=== PATIENT | female | born 1990 | race Asian ===

== ENCOUNTER → 2021-11-12 13:54 | Outpatient (CLI) | payer OTHER, SELFPAY ==
[2021-11-12 15:15] LABS: COVID19 -Nasal RAPID Negative (Negative)
== END ==
PROVIDERS: Visit Provider Family Medicine Sleep Medicine
DX: Z20.822 Contact with and (suspected) exposure to COVID-19 (principal)
CPT/HCPCS: 87635; C9803

== ENCOUNTER 2021-11-14 08:49 | Day surgery (SDC) | payer OTHER, SELFPAY ==
[2021-11-07 07:37] VITALS: BMI 21.7
[2021-11-14] VITALS (8 sets, daily range): BP systolic 94–113; BP diastolic 50–78; PULSE 75–83; RESP 16; TEMP 36.1–36.8; O2SAT 0–100; BMI 21.7
[2021-11-14] MEDS: ACETAMINOPHEN 325 MG TABLET 975 MG PO (09:23)
[2021-11-14] MEDS: LACTATED RINGERS 1,000 ML 42 ML IV ×2 (09:24→11:50)
[2021-11-14] MEDS: GABAPENTIN 300 MG CAPSULE PO (09:24)
[2021-11-14] MEDS: SCOPOLAMINE 1 PATCH TOP (09:24)
--- NOTE | 2021-11-14 09:54 | PM.PREOP ---
Pre-operative Note COVID-19 COVID-19 status: Negative Result date/Date tested (Pos, Neg/Pending): 11/12/21 Interval Note History & Physical reviewed/Exam performed by Physician: Yes Changes to H&P: No
--- NOTE | 2021-11-14 09:55 | PM.OP.1 ---
Operative Date/Time/Diagnoses Date of procedure: 11/14/21 Time of procedure: 09:55 Pre-op diagnosis: Left painful bunionette fifth metatarsal, adductovarus fifth toe Post-op diagnosis: same Procedure & Clinicians Procedure: Left fifth metatarsal bunionectomy with metatarsal osteotomy, fifth proximal interphalangeal joint derotational arthroplasty Same procedure as scheduled: Yes Indications: 31-year-old female with painful tailor's bunionette and hammertoe on the left 5th metatarsal and toe. Conservative measures have failed to alleviate her pain and she wished to have surgical intervention at this time. She arrived a little late today due to arriving at the wrong location and although her phone number evidently was incorrect and the hospital was unable to reach her ahead of the surgery, she did arrive NPO and prepared and ready for surgery. She did not bring her boot with her but it is in the car and her is going to bring it to the hospital during her surgery. We reviewed the surgery in detail for the left foot, and risks, potential complications, as well as alternatives and expected outcomes. Consent was reviewed and there are no contraindications to the procedure at this time. I spoke to her in detail regarding my concerns about her traveling to [place] following the 1st week and half or so of the surgery, and the risks associated with that, but also how we can help in regards to preparing for that. This may involve additional visits with a provider while she is there, and possible anticoagulant therapy ahead of her flight. She stated understanding and also stated she would cancel the trip if she felt further risk or difficulties in managing pain etc.. With that we are ready to proceed. Surgeon: Cathy Berry Click Yes if Unassisted: Yes Anesthesia Type: General Operative Notes Closure Type: primary Specimen(s): none sent Applied: implant(s) ([place] 2.5 cannulated partially threaded screw.) Estimated Blood Loss (mL): 30 Blood products transfused: none Tourniquet time (min): 117 Procedure in detail: The patient was brought to the operating room and placed on the operating table in the supine position. The tourniquet was placed about the left thigh. Well padded, appropriately aligned. After induction of general anesthesia the foot and ankle were prepped and draped in the usual aseptic manner. The tourniquet was inflated. Next, an incision was made over the 5th metatarsalphalangeal joint extending to the base. The incision was deepened through subcutaneous tissues being careful to identify and retract all vital neural and vascular structures. All bleeders were cauterized and ligated as necessary. The 5th MTPJ capsule was incised and this exposed the underlying enlarged 5th metatarsal lateral eminence. Attention was directed to the base of the 5th metatarsal and verifying the angle from the 5th to 4th, 2 bone cuts were made in the proximal diaphysis into the metaphysis, and the wedge of bone was removed. Using bone forceps, the angle was gently closed and showed good alignment with reduction of the 4th intermetatarsal angle. The lateral hinge was disrupted due to the amount of bone that was needed to be removed to close this angle but this was gently feathered and revised to allow for good seating of the bone and closure of the osteotomy. Temporary fixation was used and through the aid of a C-arm an attempt was made to place a screw from distal lateral to proximal medial. This just did not seem to capture very well and decision was made instead to remove this. Instead, using standard AO technique, the 2.5 mm screw was placed using the angle from proximal lateral to distal medial. This closed it much better and had good strength. The strength of the osteotomy and amount of bone that was used with the screw determined that we did not need an additional plate along this osteotomy. This was also verified on multiple angles using mini C-arm. Back up to the lateral eminence of the 5th metatarsal head, a saw was used to reduce this and the rasp was used to gently smooth the edges of the resection. The area was irrigated with copious amounts of normal sterile saline. Next, an incision was continued distally along the 5th proximal interphalangeal joint. When it got to that location a small ellipse of skin was removed. The incision was deepened through subcutaneous tissues being careful to identify and retract all vital neural and vascular structures. All bleeders were cauterized and ligated as necessary. The extensor tendon was transected at the proximal interphalangeal joint and mobilized this location. Saw was used to resect the head of the proximal phalanx and a rongeur the prominent base of the intermediate phalanx. The area was irrigated with copious amounts of normal sterile saline. The tourniquet was deflated. A prompt hyperemic response was seen to the foot. Extensor tendon along the dorsal proximal interphalangeal joint was repaired using 4-0 Vicryl. Closure deep and subcutaneous was performed using Vicryl, and nylon was used for the skin. A sterile lightly compressive dressing was placed on the foot. Patient was then placed in a postoperative boot and transferred to PACU with vital signs stable and vascular status intact to the foot. Post-operative Condition: stable Disposition: PACU Plan for aftercare: Following a period of postoperative monitoring, the patient will be discharged to home on written and oral postoperative instructions including keeping the dressing dry and intact, no weight-bearing to the surgical foot, icing and elevating the foot when seated at home. DVT prevention techniques have been reviewed. For the 1st postoperative visit the dressing will be changed and close to the 4th postoperative week we will likely get the x-ray. Very detailed information is reviewed in person with her and the nurse as well as on the phone with her and in written and instructions regarding my concerns about her travel plans and she voiced understanding as did her .
[2021-11-14] MEDS: CEFAZOLIN 2 GM/20 ML SYRINGE IV (10:12)
[2021-11-14] MEDS: BUPIVACAINE 0.5% (PF) VIAL 30 ML INJ (10:20)
--- NOTE | 2021-11-14 10:41 | SUR.OPER ---
Supine on padded OR bed, head on pillow, arms secured on padded arm boards at <90 degrees abduction, legs uncrossed, safety belt at abdomen, tape over blanket over right lower leg, bump under left hip.
== END 2021-11-14 14:32 | disposition home or self-care (01) ==
PROVIDERS: Referring Provider Podiatrist; Visit Provider Podiatrist
PROC: 0QBP0ZZ Excision of Left Metatarsal, Open Approach (ICD-10-PCS; CPT 28292; principal; 2021-11-14 10:00)
DX: M21.622 Bunionette of left foot (principal); M20.42 Other hammer toe(s) (acquired), left foot; M20.5X2 Other deformities of toe(s) (acquired), left foot; M21.41 Flat foot [pes planus] (acquired), right foot; M21.42 Flat foot [pes planus] (acquired), left foot; F41.9 Anxiety disorder, unspecified
CPT/HCPCS: 28308; 28285; J0690; J1100; J1885; J2250; J2405; J2704; J3010

== ENCOUNTER → 2022-02-24 12:55 | Outpatient (CLI) | payer OTHER, SELFPAY ==
--- NOTE | 2022-02-24 12:55 | DI.US.S_ITS ---
PROCEDURE: US OB <= 14 WEEKS FETUS INDICATIONS: DATING OUTSIDE/PRIOR DATING DATA: Last menstrual period (LMP): 12/30/21. LMP-based estimated date of delivery (ARSEN): 10/06/22. First dating scan (date and location): 02/24/22, current exam. Estimated date of delivery (ARSEN) from first dating scan: 10/03/22. TECHNIQUE: Real-time scanning was performed of the fetus and maternal pelvic organs, with image documentation. Endovaginal scanning was also performed to better visualize the fetus and maternal ovaries. COMPARISON: None. FINDINGS: Embryo: There is a single fetus with an unfused amnion and normal appearing yolk sac. Detectable cardiac activity is present in the fetus at a rate of 171 beats per minute. Average crown-rump length is 1.89 cm corresponding to an eight week three day plus or minus five days gestation. Heart rate: 171 Maternal organs: Maternal cervix is closed. There is an intrauterine gestational sac with an appropriate decidual response. There is a 1.4 cm inactive perigestational hemorrhage along the caudal right margin, likely implantation bleed. The right ovary contains a corpus luteum. The left ovary was not well seen. IMPRESSION: 1. Single living intrauterine with a gestational age by ultrasound of eight weeks three days and estimated due date of 10/03/22, in good agreement with the clinically assigned due date. 2. Probable implantation bleed noted along the right caudal gestational sac. We strive to produce accurate, complete, and clear reports of imaging services. To assist us in improving patient care, this report was composed using standard report templates and voice recognition software. Therefore, it may contain abnormal punctuation, insertions and/or omissions. Occasional wrong-word or sound-alike substitutions may occur. Though we review the report and make efforts to correct it, we do recommend that the report be read carefully in proper context to recognize any text inaccuracies. Dictated by: Bettina Oleary M.D. on 02/24/2022 at 16:38 Approved by: Bettina Oleary M.D. on 02/24/2022 at 16:41
== END ==
PROVIDERS: Referring Provider Obstetrics & Gynecology; Visit Provider Obstetrics & Gynecology
DX: Z34.81 Encounter for supervision of other normal pregnancy, first trimester (principal); Z3A.08 8 weeks gestation of pregnancy
CPT/HCPCS: 76801; 76817

== ENCOUNTER → 2022-03-26 09:45 | Outpatient (CLI) | payer OTHER, SELFPAY ==
[2022-03-26 16:00] LABS: Urine N gonorrhoeae NOT DETECTED
[2022-03-26 16:48] LABS: Urine Chlamydia NOT DETECTED
== END ==
PROVIDERS: Visit Provider Obstetrics & Gynecology
DX: Z34.81 Encounter for supervision of other normal pregnancy, first trimester (principal); Z3A.12 12 weeks gestation of pregnancy
CPT/HCPCS: 87491; 87591

== ENCOUNTER → 2022-03-26 10:06 | Outpatient (CLI) | payer OTHER, SELFPAY ==
[2022-03-26 11:19] LABS: Add Manual Diff / Slide Review NO; Basophils Absolute Auto 0 /uL (0-100); Basophils Percent Auto 0.5 % (0-2); Eosinophils Absolute Auto 200 /uL (0-450); Eosinophils Percent Auto 2.6 % (2-4); Hematocrit 31.6 % (36-46); Hemoglobin 10.5 g/dL (12.0-16.0); Lymphocytes Absolute Auto 1600 /uL (1100-4500); Mean Corpuscular HGB Conc 33.1 % (30-36); Mean Corpuscular Hemoglobin 26.5 PG (26-34); Mean Corpuscular Volume 80.2 fL (80-100); Monocytes Absolute Auto 300 /uL (0-900); Monocytes Percent Auto 4.5 % (3-14); Neutrophils Absolute Auto 4800 /uL (1500-7000); Neutrophils Percent Auto 69.4 % (50-75); Platelet Count 219 X10^3/uL (150-400); Red Blood Cell Count 3.95 X10^6/uL (4.0-5.2); Red Cell Distribution Width 13.4 % (11.6-14.8); White Blood Cell Count 6.9 X10^3/uL (4.5-11.0)
[2022-03-26 11:23] LABS: Appearance Urine UA CLEAR; Bilirubin Urine UA NEGATIVE (NEGATIVE); Color Urine UA YELLOW; Glucose Urine UA NEGATIVE (Negative); Ketones Urine UA NEGATIVE (NEGATIVE); Leukocyte Esterase Urine UA TRACE (NEGATIVE); Nitrite Urine UA NEGATIVE (Negative); Occult Blood Urine UA TRACE-INTACT (Negative); Protein Urine UA NEGATIVE (Negative); Specific Gravity Urine UA <=1.005 (1.000-1.035); Urobilinogen Urine UA 0.2 E.U./dL (0.2)
[2022-03-26 11:25] LABS: pH Urine UA 6.5 (4.5-8.0)
[2022-03-26 11:29] LABS: Bacteria Urine None Seen; RBC Urine None Seen (0-5/HPF); Urine Comments Microscopic Normal; WBC Urine None Seen (0-5/HPF)
[2022-03-27 08:40] LABS: RPR Screen Non Reactive (Non Reactive); Varicella IgG Antibody 622 index (Immune >165)
[2022-03-27 16:08] LABS: Hepatitis B Surface Antigen NEGATIVE s/c (NEGATIVE); Rubella Antibody IgG 67.4 IU/mL (>15)
[2022-03-27 16:29] LABS: HIV 1 & 2 Ab/Ag 4th Gen Combo NEGATIVE (NEGATIVE); Hep C Virus Ab w/Reflex Quant NEGATIVE s/c (NEGATIVE)
== END ==
PROVIDERS: PCP Student in an Organized Health Care Education/Training Program; Referring Provider Obstetrics & Gynecology; Visit Provider Obstetrics & Gynecology
DX: Z34.81 Encounter for supervision of other normal pregnancy, first trimester (principal); Z3A.12 12 weeks gestation of pregnancy
CPT/HCPCS: 36415; 80055; 81003; 81015; 86787; 86803; 86850; 86900; 86901; 87077; 87086; 87186; 87389; 87491; 87591

== ENCOUNTER → 2022-04-23 10:08 | Outpatient (CLI) | payer OTHER, SELFPAY ==
[2022-04-23 12:28] LABS: Hematocrit 29.2 % (36-46); Hemoglobin 9.9 g/dL (12.0-16.0)
[2022-04-25 20:41] LABS: Gest Age on Col Date 16.3 weeks (.); Insulin Dep Diabetes No (.); OSBR Risk 1IN 5251 (.); Results Report (.); Test Results *Screen Negative* (.)
== END ==
PROVIDERS: PCP Student in an Organized Health Care Education/Training Program; Referring Provider Obstetrics & Gynecology; Visit Provider Obstetrics & Gynecology
DX: Z34.82 Encounter for supervision of other normal pregnancy, second trimester (principal); Z3A.16 16 weeks gestation of pregnancy
CPT/HCPCS: 36415; 82105; 85014; 85018

== ENCOUNTER → 2022-05-21 11:11 | Outpatient (CLI) | payer OTHER, SELFPAY ==
--- NOTE | 2022-05-21 11:13 | DI.US.S_ITS ---
PROCEDURE: US OB >= 14 WEEKS FETUS INDICATIONS: ANATOMY OUTSIDE/PRIOR DATING DATA: Last menstrual period (LMP): 12/30/2021. LMP-based estimated date of delivery (ARSEN): 10/06/2022. First dating scan (date and location): 02/24/2022. Estimated date of delivery (ARSEN) from first dating scan: 10/03/2022. The calculations are made using the working ARSEN . TECHNIQUE: Real-time scanning was performed of the fetus, with image documentation and biometric measurements. COMPARISON: [facility], OB <= 14 WEEKS FETUS, 02/24/2022, 13:03. FINDINGS: General: A single living intrauterine gestation is present. Presentation: Vertex. Placenta: Placental position is posterior , without previa. Amniotic fluid index: 14.7 cm, normal range is 5-24 cm. Single deepest vertical pocket is 4.8 cm. heart rate: 137 beats per minute. Maternal cervical canal: 3.1 cm long. Normal lower limit is 2.5 cm. biometrics: Biparietal diameter: 20 weeks 0 day Head circumference: 20 weeks 3 days Abdominal circumference: 21 weeks 0 day Femur length: 21 weeks 3 days Clinically estimated gestational age: 20 weeks 5 days Composite gestational age from present scan: 20 weeks 5 days Estimated weight and percentile: 400 g; 67% Anatomic survey: Neuro: Ventricles are non-dilated at less than 10 mm. Cisterna magna is normal at 3-11 mm. Cerebellum is normal in size and morphology. Nuchal skin fold: Normal at less than 6 mm between 14-21 weeks gestational age. Face: Nose and lips, facial profile are normal. Spine: No evidence for spina bifida. Heart: 4-chambered heart is present, with normal ventricular outflow tracts. Diaphragm: Diaphragm is intact. Stomach: Left-sided stomach is present. Kidneys: No hydronephrosis. Normal is less than 5 mm in 2nd trimester, less than 7 mm in 3rd trimester. Cord: 3-vessel cord has orthotopic insertion. Bladder: Normal in size. Extremities: All 4 extremities identified. IMPRESSION: 1. A single living intrauterine gestation with appropriate interval growth. 2. Normal anatomic survey. We strive to produce accurate, complete, and clear reports of imaging services. To assist us in improving patient care, this report was composed using standard report templates and voice recognition software. Therefore, it may contain abnormal punctuation, insertions and/or omissions. Occasional wrong-word or sound-alike substitutions may occur. Though we review the report and make efforts to correct it, we do recommend that the report be read carefully in proper context to recognize any text inaccuracies. Dictated by: Laura Briceno M.D. on 05/21/2022 at 14:50 Approved by: Laura Briceno M.D. on 05/21/2022 at 14:58
[2022-05-21 12:21] LABS: Hematocrit 30.4 % (36-46); Hemoglobin 10.2 g/dL (12.0-16.0)
[2022-05-21 19:29] LABS: HEMOLYSIS < 15 (0-50); Iron 168 ug/dL (37-170)
[2022-05-21 19:42] LABS: Percent Iron Saturation 42 % (15-50); Total Iron Binding Capacity 398 ug/dL (265-497); Transferrin 306 mg/dL (206-381)
== END ==
PROVIDERS: PCP Student in an Organized Health Care Education/Training Program; Referring Provider Obstetrics & Gynecology; Visit Provider Obstetrics & Gynecology
DX: O99.012 Anemia complicating pregnancy, second trimester; Z36.89 Encounter for other specified antenatal screening; Z3A.20 20 weeks gestation of pregnancy
CPT/HCPCS: 36415; 76811; 83540; 83550; 85014; 85018

== ENCOUNTER → 2022-05-29 13:27 | Outpatient (CLI) | payer OTHER, SELFPAY ==
[2022-05-29 16:42] LABS: Folate > 20.0 ng/mL (2.76-20.0); Vitamin B12 371 pg/mL (239-931)
== END ==
PROVIDERS: PCP Student in an Organized Health Care Education/Training Program; Referring Provider Obstetrics & Gynecology; Visit Provider Obstetrics & Gynecology
DX: O99.012 Anemia complicating pregnancy, second trimester (principal); Z3A.21 21 weeks gestation of pregnancy
CPT/HCPCS: 36415; 82607; 82746; 83021

== ENCOUNTER → 2022-07-01 17:45 | Outpatient (CLI) | payer OTHER, SELFPAY | PROVIDERS: PCP Student in an Organized Health Care Education/Training Program; Visit Provider Obstetrics & Gynecology | DX: Z34.82 Encounter for supervision of other normal pregnancy, second trimester (principal); R31.9 Hematuria, unspecified | CPT/HCPCS: 87077; 87086; 87186 ==

== ENCOUNTER → 2022-07-10 09:36 | Outpatient (CLI) | payer OTHER, SELFPAY ==
[2022-07-10 11:16] LABS: Hemoglobin 9.6 g/dL (12.0-16.0)
[2022-07-10 11:29] LABS: GTT (PREG) 1 Hour PP 50gm Dose 112 mg/dL (76-139)
== END ==
PROVIDERS: PCP Student in an Organized Health Care Education/Training Program; Referring Provider Obstetrics & Gynecology; Visit Provider Obstetrics & Gynecology
DX: Z34.82 Encounter for supervision of other normal pregnancy, second trimester (principal); Z3A.26 26 weeks gestation of pregnancy
CPT/HCPCS: 36415; 82950; 85014; 85018

== ENCOUNTER → 2022-07-29 10:47 | Outpatient (CLI) | payer OTHER, SELFPAY | PROVIDERS: PCP Student in an Organized Health Care Education/Training Program; Visit Provider Obstetrics & Gynecology | DX: O23.40 Unspecified infection of urinary tract in pregnancy, unspecified trimester (principal); Z3A.30 30 weeks gestation of pregnancy | CPT/HCPCS: 87077; 87086; 87186 ==

== ENCOUNTER → 2022-08-28 16:00 | Outpatient (CLI) | payer OTHER, SELFPAY | PROVIDERS: PCP Student in an Organized Health Care Education/Training Program; Visit Provider Specialist | DX: O23.40 Unspecified infection of urinary tract in pregnancy, unspecified trimester (principal) | CPT/HCPCS: 87077; 87086; 87186 ==

== ENCOUNTER → 2022-09-09 11:07 | Outpatient (CLI) | payer OTHER, SELFPAY ==
[2022-09-10 13:12] LABS: Strep Grp B PCR NEG for Grp B Strep
== END ==
PROVIDERS: PCP Student in an Organized Health Care Education/Training Program; Visit Provider Obstetrics & Gynecology
DX: Z34.83 Encounter for supervision of other normal pregnancy, third trimester (principal); Z3A.36 36 weeks gestation of pregnancy
CPT/HCPCS: 87086; 87653

== ENCOUNTER 2022-10-07 11:55 | Outpatient (CLI) | payer OTHER, SELFPAY | END 2022-10-07 12:47 | disposition home or self-care (01) | LOC: OB 10-10 15:22 | PROVIDERS: PCP Student in an Organized Health Care Education/Training Program; Referring Provider Obstetrics & Gynecology; Visit Provider Obstetrics & Gynecology | DX: O48.0 Post-term pregnancy (principal); Z3A.40 40 weeks gestation of pregnancy | CPT/HCPCS: 59025; 76815; G0378; G0379 ==

== ENCOUNTER 2022-10-08 23:03 | Inpatient (IN) | payer OTHER, SELFPAY ==
[2022-10-08] MEDS: LACTATED RINGERS 1,000 ML 999 ML IV (23:30)
--- NOTE | 2022-10-08 23:41 | P.HPOB_ITS ---
OB HPI Date/Time Date of admission: 10/08/22 Date Patient Seen: 10/08/22 Time Patient Seen: 23:41 History of Present Condition Chief complaint: Labor ARSEN Calculator Estimated Delivery Date Method Current WG Current Estimate 10/06/22 LMP (Certain) 40w 3d Other Estimates 10/03/22 Ultrasound #1 40w 6d Estimated Gestational Age (weeks): 40+2 : 2 Para: 1 care: good care, initiated at week # (12), number of visits (15) and pounds weight gain (36) Dating criteria OB: LMP confirmed by 1st trimester US Ultrasounds: normal 1st trimester US and normal mid trimester US Obstetrical complications: none Medical complications OB: none Preadmission Labs Last OB Lab Results: Blood Type A Positive 10/08/22 23:10 Antibody Screen Negative 10/08/22 23:10 Hematocrit 33.5 % (36-46) L 10/08/22 23:10 Hemoglobin 11.1 g/dL (12.0-16.0) L 10/08/22 23:10 Hepatitis B Surface Antigen Negative s/c (NEGATIVE) 03/26/22 10 :11 Hepatitis C Antibody Negative s/c (NEGATIVE) 03/26/22 10:11 Rubella Antibody 67.4 IU/mL (>15) 03/26/22 10:11 Varicella-Zoster IgG Antibody 622 index (Immune >165) 03/26/22 10:11 Glucose 1 Hour 112 mg/dL (76-139) 07/10/22 10:44 Group B Streptococcus (PCR) Neg for grp b strep 09/09/22 11:07 -: Chlamydia screen: negative, Gonorrhea screen: negative and Urine: positive (E coli, treated f/u neg) -: PAP smear: Normal Genetic Screens: Cell-free DNA: Normal and Alpha-fetoprotein: Normal External Labs -: Urine: positive (E coli, treated f/u neg) Prior (ies) Past Pregnancies Del. Date GA/Weeks Labor Lgth Wt Sex Route Outcome Anesthesia Place Delv Breastfeed Preg Comp Name 12/09/16 39 3 7 lb 7 oz Female vaginal live - full term NHOH 1 year none Emrie Evaluation Evaluation Baseline heart rate: 120 Variability: Moderate (11-25) monitor accelerations: Present Monitor Decelerations: Absent Contraction Frequency (minutes): 3 Uterine Contraction Intensity: Strong/Firm Status: Category l Dilation (cm): 9 Effacement (%): 100 station: +2 Position of cervix: anterior Consistency: soft PFSH Medical History (Updated 09/30/22 @ 08:57 by Wihco Casey MD) ADHD (~2020) Anxiety (~2020) Depression Surgical History (Updated 04/01/22 @ 21:35 by Marisa Prince) Anesthesia H/O foot surgery Status post third molar tooth extraction Family History (Updated 03/04/22 @ 15:40 by Amelia Guillen RN) Sister Molar Social History marital status: number of children: 3 (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) household members: spouse and children lives independently: Yes housing: house pets and animals: Yes (1 dog, aware of toxo) education level: high school occupational status: employed current occupational exposures/hazards: No special parvin needs: No travel history: recent ([place]) seatbelt use: always helmet use: Yes working smoke detector in home: Yes fire extinguisher in home: Yes carbon monox detector in home: Yes firearms in home: Yes firearms unloaded and locked: Yes do you feel safe at home: Yes Smoking Status: Never smoker alcohol intake: former (~1/week when not ) substance use type: does not use during the past year weight has: remained stable well-balanced diet: daily or most days daily servings fruits/ve-4 caffeine: Yes (minimal) Type(s) of exercise: regular exercise, weight lifting and running frequency: 3-4 times per week Meds Home Medications and Allergies Home Medications Medication Instructions Recorded Confirmed Type prenat.vits,pancho,clo-pddv-hokpb 1 tab PO DAILY 02/27/22 10/07/22 History ondansetron 4 mg disintegrating 4 mg PO Q6-8H nausea #20 tabs 03/28/22 10/07/22 Rx tablet ferrous sulfate 325 mg (65 mg 325 mg PO DAILY #90 tabs 04/24/22 10/07/22 Rx iron) tablet nitrofurantoin macrocrystal 100 mg 100 mg PO Q12H Recurring UTI #30 08/30/22 10/07/22 Rx capsule (Macrodantin) caps double electric breast pump 1 ea topical .prn #1 ea 09/24/22 10/07/22 Rx Allergies Allergy/AdvReac Type Severity Reaction Status Date / Time No Known Drug Allergies Allergy Verified 10/07/22 11:24 OB Exam Narrative Exam Narrative: Generally: Patient lying in bed, in moderate distress due to contractions Fundal height: 40 cm Estimated weight: 7-1/2 lb Extremities: No edema Objective Labs 10/08/22 23:10 Assessment and Plan Assessment and Plan Assessment and Plan narrative: Assessment: 32-year-old 2 para 1 at 40-,2/7 weeks gestation in active labor Desires epidural for pain management Group B strep negative Plan: Epidural AROM Expected management to spontaneous vaginal delivery Time Spent with Patient Total time spent with greater than 50% in coordination of care (as documented) at patient's floor/unit and/or counseling patient:: 15-24 minutes
[2022-10-08 23:45] LABS: Add Manual Diff / Slide Review NO; Basophils Absolute Auto 200 /uL (0-100); Basophils Percent Auto 2.7 % (0-2); Eosinophils Absolute Auto 100 /uL (0-450); Eosinophils Percent Auto 1.3 % (2-4); Hematocrit 33.5 % (36-46); Hemoglobin 11.1 g/dL (12.0-16.0); Lymphocytes Absolute Auto 1600 /uL (1100-4500); Lymphocytes Percent Auto 18.5 % (25-40); Mean Corpuscular HGB Conc 33.2 % (30-36); Mean Corpuscular Hemoglobin 26.4 PG (26-34); Mean Corpuscular Volume 79.5 fL (80-100); Monocytes Absolute Auto 500 /uL (0-900); Monocytes Percent Auto 5.4 % (3-14); Neutrophils Absolute Auto 6100 /uL (1500-7000); Neutrophils Percent Auto 72.1 % (50-75); Platelet Count 203 X10^3/uL (150-400); Red Blood Cell Count 4.21 X10^6/uL (4.0-5.2); Red Cell Distribution Width 13.9 % (11.6-14.8); White Blood Cell Count 8.5 X10^3/uL (4.5-11.0)
[2022-10-09] MEDS: OXYTOCIN PREMIX 30 UNIT/500 ML PLAST..BAG 220 UNIT IV (00:34)
[2022-10-09 00:46] VITALS: BP 105/59
--- NOTE | 2022-10-09 00:58 | P.PCNOB_ITS ---
Events: Meconium Stained Fluid Labor & Delivery Delivery date: 10/09/22 Cervical ripening method: none Induction method: none Delivery augmentation: rupture of membranes Delivery monitor: external FHT and external uterine Route of delivery: Episiotomy description: None L&D Laceration Description: Perineal - 2nd Degree Delivery repair: vicryl and chromic Quantitative Blood Loss: 300 Anesthesia Type: Epidural Complications: None Narrative: Patient was complete. Artificial rupture of membranes was performed at 12:16 a.m. with thin meconium-stained amniotic fluid. Patient pushed for 8 minutes. A straight cath was done prior to delivery. At 12:32 a.m., a live female delivered spontaneously over an intact perineum, in the VINCENT presentation. No nuchal cord. The remainder of the body delivered without difficulty and was placed on mom's abdomen. There was a large gush of fluid after the body came out. Pitocin was given in the IV fluids at 220 cc/hour. The cord was double clamped and cut after it stopped pulsing. Cord bloods were obtained. The placenta delivered intact with a three-vessel cord at 12:38 a.m.. The fundus was massaged to firm. A second-degree perineal laceration was repaired in the usual fashion. Epidural analgesia. . Apgars 9 at 1 minute and 9 at 5 minutes. Mom and infant stable to recovery. [place] Baby 1: Infant gender: Female Presentation: vertex Position: Left Occiput Anterior Placenta delivery description: Spontaneous Cord Vessel Description: 3 Vessels score (1 min): 9 score (5 min): 9 Plan for aftercare: Routine care
--- NOTE | 2022-10-09 06:56 | PM.NBHP.1 ---
History History Estimated Gestational Age (weeks): 40+2 : 2 Para: 1 care: good care, initiated at week # (12), number of visits (15) and pounds weight gain (36) Dating criteria OB: LMP confirmed by 1st trimester US Ultrasounds: normal 1st trimester US and normal mid trimester US Obstetrical complications: none Medical complications OB: none Preadmission Labs Last OB Lab Results: ?? ? Blood Type A Positive 10/08/22 23:10 ? Antibody Screen Negative 10/08/22 23:10 ? Hematocrit 33.5 % (36-46)? L 10/08/22 23:10 ? Hemoglobin 11.1 g/dL (12.0-16.0)? L 10/08/22 23:10 ? Hepatitis B Surface Antigen Negative s/c (NEGATIVE) 03/26/22 10:11 ? Hepatitis C Antibody Negative s/c (NEGATIVE) 03/26/22 10:11 ? Rubella Antibody 67.4 IU/mL (>15) 03/26/22 10:11 ? Varicella-Zoster IgG Antibody 622 index (Immune >165) 03/26/22 10:11 ? Glucose 1 Hour 112 mg/dL (76-139) 07/10/22 10:44 ? Group B Streptococcus (PCR) Neg for grp b strep 09/09/22 11:07 ? -: Chlamydia screen: negative, Gonorrhea screen: negative and Urine: positive (E coli, treated? ? f/u neg) -: PAP smear: Normal Genetic Screens: Cell-free DNA: Normal and Alpha-fetoprotein: Normal External Labs -: Urine: positive (E coli, treated? ? f/u neg) Exam - Pediatric Vital Signs Vital Signs: Vital Signs BP 105/59 L 10/09/22 00:46 Objective Labs 10/08/22 23:10 Labs: Laboratory Results - last 24 hr 10/08/22 10/08/22 23:10 23:10 WBC 8.5 RBC 4.21 Hgb 11.1 L Hct 33.5 L MCV 79.5 L MCH 26.4 MCHC 33.2 RDW 13.9 Plt Count 203 Neut % (Auto) 72.1 Lymph % (Auto) 18.5 L [place] % (Auto) 5.4 Eos % (Auto) 1.3 L Baso % (Auto) 2.7 H Neut # (Auto) 6100 Lymph # (Auto) 1600 [place] # (Auto) 500 Eos # (Auto) 100 Baso # (Auto) 200 H Blood Type A Positive Antibody Screen Negative Sarnat Scoring Scale Citation Matt HB, Alexandra L, Raul C, Ana LM, Purnima C, Sven K. Sarnat grading scale for encephalopathy after 45 years: an update proposal. Pediatr Neurol. 2020;113:75?9.
[2022-10-09] MEDS: IBUPROFEN 600 MG TABLET PO (09:33)
--- NOTE | 2022-10-09 09:41 | PM.AN.REGBLK ---
Regional Block Pre-procedure Procedure: Continuous Lumbar Epidural for L&D Attending OB provider: Emily Stockton Hx: No personal or family history of anesthesia problems. PSH/Anesthesia history narrative: Labs: Hct 33.5 % (36-46) L 10/08/22 23:10 Plt Count 203 X10^3/uL (150-400) 10/08/22 23:10 Medications: Current Medications Generic Name Dose Route Start Last Admin Trade Name Freq PRN Reason Stop Dose Admin Acetaminophen 650 mg 10/09/22 01:12 Acetaminophen 325 Mg Tablet PO Q6HR PRN Pain, Mild (1-3) Benzocaine 1 spray 10/09/22 01:12 Dermoplast [place] 20% 60 Ml TOP Q1HR PRN perineal pain Carboprost Tromethamine 250 mcg 10/09/22 01:12 Carboprost 250 Mcg/Ml Ampul IM Q90MIN PRN Bleeding Diphenhydramine HCl 25 mg 10/09/22 09:39 Diphenhydramine 50 Mg/Ml Vial IV Q10M PRN Pruritis Docusate Sodium 100 mg 10/09/22 09:00 Docusate 100 Mg Capsule PO DAILY [facility] Emollient Ointment 1 applic 10/09/22 01:12 Lanolin Oint 7 Gm TOP PRN PRN Tenderness Tranexamic Acid 1,000 mg/ 100 mls @ 200 mls/hr 10/09/22 01:12 Sodium Chloride IV NOW PRN Bleeding Oxytocin/Lactated Ringer's 30 unit in 500 mls @ 200 mls/hr 10/09/22 01:12 Oxytocin Premix IV CONT PRN Bleeding Protocol FENT 2MCG/ML BUPIV 0.125% EPI 200 mcg in 100 mls @ 6 mls/hr 10/09/22 09:45 Fentanyl/Bupiv/Ns 2mcg/Ml - 0.125% EPIDURAL CONT DEANN Ibuprofen 600 mg 10/09/22 01:12 10/09/22 09:33 Ibuprofen 600 Mg Tablet PO 600 mg Q6HR PRN Administration Pain, Mild (1-3) Magnesium Hydroxide 30 ml 10/09/22 01:12 Magnesium Hydroxide 30 Ml Udc PO DAILY PRN Constipation Methylergonovine Maleate 0.2 mg 10/09/22 01:12 Methylergonovine 0.2 Mg/Ml Vial IM NOW PRN Bleeding Methylergonovine Maleate 0.2 mg 10/09/22 01:12 Methylergonovine 0.2 Mg Tablet PO Q6HR PRN Heavy bleeding Misoprostol 400 mcg 10/09/22 01:12 Misoprostol 200 Mcg Tablet SL NOW PRN Bleeding Misoprostol 1,000 mcg 10/09/22 01:12 Misoprostol 200 Mcg Tablet IN NOW PRN Bleeding Misoprostol 800 mcg 10/09/22 01:12 Misoprostol 200 Mcg Tablet IN NOW PRN Bleeding Nalbuphine HCl 2.5 mg 10/09/22 09:39 Nalbuphine 20 Mg/Ml Ampul IV Q10M PRN Pruritis Naloxone HCl 0.2 mg 10/09/22 01:12 Naloxone 0.4 Mg/Ml Vial IV Q2MIN PRN Opiate Reversal Oxytocin 10 unit 10/09/22 01:12 Oxytocin 10 Unit/Ml Vial IM NOW PRN Bleeding Vit/Calcium/Iron/Folic Ac 1 tab 10/09/22 09:00 Vit,Calc/Iron/Folic 1 Tablet PO DAILY DEANN Rho Immune Globulin 1,500 unit 10/09/22 01:12 Rho(D) Immune Globulin 1,500 Unit Syringe IM NOW PRN Mom Rh neg, Infant Rh pos Allergies: Allergies Allergy/AdvReac Type Severity Reaction Status Date / Time No Known Drug Allergies Allergy Verified 10/07/22 11:24 Procedure Insertion date: 09/07/22 Prep/Local: betadine x3 Interspace: L3-4 Loss of resistance with: saline Sensory level: T8 miguelito Insertion: No CSF, No Blood, No Paresthesia with insertion, No Paresthesia with injection and No Test dose reaction Initial Medications TEST DOSE time: 23:35 BOLUS DOSE time: 23:45 Infusion Initial rate (mL/hr): 6 Post-procedure Anesthesia time START: 23:28 Anesthesia time END: 00:33 Post-procedure Anesthesia Assessment: Yes CV function: HR/BP stable, Yes Resp function: RR/sat/airway adequate, Yes Post-op hydration adequate, Yes Pain control adequate, Yes Nausea & vomiting absent, Yes Temperature > 36 C, Yes Mental status appropriate and No Anesthesia complications
--- NOTE | 2022-10-09 13:56 | P.DS_ITS ---
Discharge Providers Provider Date of admission: 10/08/22 23:03 Discharge Date: 10/09/22 Primary care physician: Sami Peralta Consults: 10/08/22 23:31 Consult to Anesthesiology Urgent Comment: Consulting Provider: Anesthesiologist Reason for consultation: Epidural 10/10/22 00:56 Consult to Livestock Nutritionist Routine Comment: Discharge provider: Wicho Casey MD Summary Hospital Course Date Patient Seen: 10/09/22 Time Patient Seen: 17:10 Diagnoses: Intrauterine gestation, 40+ 2 weeks gestational age, delivered by spontaneous vaginal Hospital Course: Diane presented in active labor to the [facility] on the evening of 10/08/2022 and after placement of a continuous lumbar epidural for obstetrical anesthesia, the patient delivered an uncomplicated spontaneous vaginal very early on the morning of 10/09/2022. She did not sustain any obstetrical lacerations. Following delivery both mother and baby have done extremely well with the mother experiencing prompt return of bowel and bladder function, she is ambulating independently, tolerating a regular diet, and her pain is well controlled with oral pain medications. She will be discharged at this time in an afebrile normotensive condition to home with instructions regarding precautionary symptoms, limitations of activity, medications, and pl ans for follow-up which will be in 6 weeks. Medications at discharge will include resumption of all pre delivery medications, and ibuprofen 600 mg p.o. q.6 hours as needed pain. The patient is undecided regarding contraception going forward. Peripartum Data Delivery Method: Natural Vaginal Laceration Description: None Episiotomy description: None complications: none [place] 1: Gender: Female Disposition of : home Status at Discharge Cognitive/behavioral status at discharge: oriented Functional status at discharge: independent ambulation Overall status at discharge: patient is progressing back to baseline Time Spent with Patient Time attestation: Total time spent providing and/or coordinating discharge services: Objective Labs 10/08/22 23:10 Labs: Laboratory Results - last 24 hr 10/08/22 10/08/22 23:10 23:10 WBC 8.5 RBC 4.21 Hgb 11.1 L Hct 33.5 L MCV 79.5 L MCH 26.4 MCHC 33.2 RDW 13.9 Plt Count 203 Neut % (Auto) 72.1 Lymph % (Auto) 18.5 L Haakon % (Auto) 5.4 Eos % (Auto) 1.3 L Baso % (Auto) 2.7 H Neut # (Auto) 6100 Lymph # (Auto) 1600 Haakon # (Auto) 500 Eos # (Auto) 100 Baso # (Auto) 200 H Blood Type A Positive Antibody Screen Negative Exam Const General: cooperative and comfortable Nutritional Appearance: average body habitus Orientation: alert and oriented x3 HENMT Head: normal to inspection, atraumatic and abrasion Ears: hearing grossly normal bilaterally Face and sinus: face symmetric Eyes General: appearance normal, both eyes and all related structures Conjunctivae: conjunctivae normal Sclera: sclerae normal EOM: EOM intact bilaterally Neck Neck: normal visual inspection Resp Effort & Inspection: normal respiratory effort and able to speak in complete sentences Auscultation: clear to auscultation bilaterally Cardio Heart Sounds: murmur GI Inspection: normal to inspection Palpation: soft and no hepatosplenomegaly External Female Exam: no lacerations and other (No significant bleeding noted) Extrem General: no calf tenderness Psych Appearance: grossly normal Mental Status: mental status grossly normal Speech and Movement: speech and movement normal Mood: congruent mood Affect: normal affect Attitude: cooperative Thought Process: normal Thought Content: normal Judgment: judgment good Discharge Plan Discharge Plan Patient Disposition: Home Provider Discharge Comment: Please review the written instructions you received when you were discharged from the hospital. Your follow-up appointment will be scheduled for 6 weeks after delivery and I look forward to seeing you then. If however in the meanwhile, you have any issues, problems, or questions, please contact me either through the office phone at [phone], or via the patient portal. Discharge orders & Medications Prescriptions: New ibuprofen 600 mg Tablet 600 mg PO Q6HR PRN (Reason: Pain, Mild (1-3)) Qty: 3 2RF Continued prenat.vits,pancho,xgv-hgrw-oxhuq Tablet 1 tab PO DAILY ferrous sulfate 325 mg (65 mg iron) tablet 325 mg PO DAILY Qty: 90 3RF double electric breast pump 1 ea topical .prn Qty: 1 0RF Rx Instructions: ARSEN 10/06/22 Double electric breast pump with supplies Follow up/Referrals: Sami Peralta [Primary Care Provider] - Wicho Casey MD [Physician] - 11/20/22 9:00 am (Check in at 0845. 6 week follow up care) Discharge Health Status Multidrug resistant organism: No MDRO Diet/Activity/Treatments Diet: Diet as Tolerated Activity: As tolerated Other treatments: Gjuv-vyg-kqhhkrw Tylenol and/or ibuprofen may be used for additional pain relief. Rial-gnp-ttvohqk stool softeners and/or MiraLax may be used as needed for constipation. Skin/Wound/Dressing Care Report to your healthcare provider any signs of infection, such as:: chills, fever, increased pain, unusual drainage and unusual redness Dressing: N/A Visit Report/Discharge Packet Instructions: DI for Labor and Delivery, Vaginal , DI for and Nipple Soreness Discharge Data Primary Care Provider: Sami Peralta
== END 2022-10-09 20:20 | disposition home or self-care (01) | DRG 807 ==
PROVIDERS: Obstetrics & Gynecology; Admitting Provider Obstetrics & Gynecology; PCP Student in an Organized Health Care Education/Training Program; Referring Provider Obstetrics & Gynecology; Visit Provider Obstetrics & Gynecology
DX: O70.1 Second degree perineal laceration during delivery (principal); Z37.0 Single live birth; Z3A.40 40 weeks gestation of pregnancy; O77.0 Labor and delivery complicated by meconium in amniotic fluid
CPT/HCPCS: 36415; 59050; 59400; 59409; 85025; 86850; 86900; 86901; G0379; J2590

== ENCOUNTER → 2025-04-05 10:39 | Outpatient (CLI) | payer OTHER, SELFPAY ==
[2025-04-05 10:54] LABS: Add Manual Diff / Slide Review NO; Hematocrit 36.3 % (36-46); Hemoglobin 11.7 g/dL (12.0-16.0); Lymphocytes Absolute Auto 1700 /uL (1100-4500); Mean Corpuscular HGB Conc 32.3 % (30-36); Mean Corpuscular Hemoglobin 25.3 PG (26-34); Mean Corpuscular Volume 78.4 fL (80-100); Platelet Count 219 X10^3/uL (150-400)
[2025-04-05 11:23] LABS: HEMOLYSIS < 15 (0-50); Iron 172 ug/dL (37-170)
[2025-04-05 11:24] LABS: Alanine Aminotransferase 18 IU/L (<35); Albumin 4.5 g/dL (3.5-5.0); Albumin Globulin Ratio 1.6 (1.0-2.8); Alkaline Phosphatase 38 U/L (38-126); Blood Urea Nitrogen 12 mg/dL (7-17); Calcium 9.2 mg/dL (8.4-10.2); Carbon Dioxide 25 mmol/L (22-32); Chloride 104 mmol/L (98-107); Estimated Glomerular Filt Rate > 60 mL/min (>60); Globulin 2.9 g/dL (1.7-4.1); Glucose 101 mg/dL (70-99); HEMOLYSIS < 15 (0-50); Potassium 4.1 mmol/L (3.4-5.1); Sodium 137 mmol/L (137-145); Total Protein 7.4 g/dL (6.3-8.2)
[2025-04-05 11:35] LABS: Percent Iron Saturation 57 % (15-50); Total Iron Binding Capacity 302 ug/dL (265-497); Transferrin 254 mg/dL (206-381)
[2025-04-05 11:59] LABS: Ferritin 34 ng/mL (6-137)
== END ==
PROVIDERS: PCP Family Medicine; Referring Provider Family Medicine; Visit Provider Family Medicine
DX: Z14.8 Genetic carrier of other disease (principal)
CPT/HCPCS: 36415; 80053; 82728; 83540; 83550; 85025

== ENCOUNTER → 2025-05-06 15:42 | Outpatient (CLI) | payer OTHER, SELFPAY ==
--- NOTE | 2025-05-06 15:45 | DI.MRI.S_ITS ---
PROCEDURE: MR LUMBAR SPINE WO CON INDICATIONS: worsening pain, known disc disease TECHNIQUE: Noncontrast sagittal T1 spin echo and T2 fast echo, sagittal STIR, and T2 fast spin echo through the lumbar spine. In cases with scoliosis, additional coronal T2 fast spin echo may be performed. COMPARISON: [facility] Outside Film, MR, MR LUMBAR SPINE WITHOUT CONTRAST, 04/28/2023, 9:51. MR 04/28/2023. FINDINGS: Image quality: Excellent. Alignment and Curvature: There is normal bony alignment. Bone Marrow: Marrow is of normal overall signal. No acute vertebral body compression fractures. Spinal Cord: Conus medullaris terminates at the L1 level. Visualized cord demonstrates normal signal and size. Paraspinous Soft Tissues: No paravertebral masses. T12-L1: Normal appearance. L1-L2: Normal appearance. L2-L3: Normal appearance. L3-L4: Facet hypertrophy. L4-L5: Facet hypertrophy. Small joint effusions. Disc desiccation with broad- based disc bulge and probable annular fissure. Mild bilateral neural foraminal narrowing. L5-S1: Normal appearance. IMPRESSION: Similar degenerative disc disease at L4-5, without significant spinal canal o narrowing. Mild bilateral neural foraminal narrowing at this level. Dictated by: Phillip Barnett M.D. on 05/06/2025 at 16:56 Approved by: Phillip Barnett M.D. on 05/06/2025 at 16:58
== END ==
LOC: MRI 15:43
PROVIDERS: PCP Family Medicine; Referring Provider Family Medicine; Visit Provider Family Medicine
DX: M51.16 Intervertebral disc disorders with radiculopathy, lumbar region (principal); M47.26 Other spondylosis with radiculopathy, lumbar region; M48.061 Spinal stenosis, lumbar region without neurogenic claudication; M54.9 Dorsalgia, unspecified; G89.29 Other chronic pain; M25.48 Effusion, other site
CPT/HCPCS: 72148